=== PATIENT | female | born 1970 | race Caucasian/White ===

== ENCOUNTER 2023-07-25 03:33 | Emergency (ER) | payer OTHER, SELFPAY ==
[2023-07-25 03:40] VITALS: BP 145/90; PULSE 91; RESP 16; TEMP 36.6; O2SAT 99; BMI 29.6
--- NOTE | 2023-07-25 03:57 | ED.GENADULT ---
HPI - General Adult General Time Seen by Provider: 03:57 Date Seen: 07/25/23 Chief complaint: Chest Pain Stated complaint: Tightness Chest, Tingly arms/back legs Time Seen by Provider: 07/25/23 03:45 Source: patient, RN notes reviewed and old records reviewed Mode of arrival: ambulatory Limitations: no limitations History of Present Illness HPI narrative: 52-year-old female who comes in today with chest pain and paresthesias of the arms and legs. Patient reports that she woke up with chest pressure and nausea vomiting along with lightheadedness. Went to the bathroom and laid down, symptoms persisted but started to subside but then she sat up and symptoms return. She describes numbness and tingling in the arms and legs. No vomiting, loose stools but no abdominal pain, no fevers. Did feel like her heart was beating hard. No recent shortness of breath or exercise intolerance, feeling better now. Related Data Previous Rx's Medication Instructions Recorded ondansetron 4 mg disintegrating 4 mg PO Q6H PRN nausea and 07/25/23 tablet vomiting #20 tabs Allergies Allergy/AdvReac Type Severity Reaction Status Date / Time No Known Drug Allergies Allergy Verified 07/25/23 04:10 [facility] Social History Smoking Status: Never smoker Do you use any of these nicotine containing products: None Second hand tobacco smoke exposure: No How often do you have a drink containing alcohol: never How often do you have six or more drinks on one occasion: Never AUDIT-C Alcohol total score: 0 Non-prescribed substance use: denies use service: No Exam Narrative: Exam Narrative: General: Well-developed and well-nourished, no acute distress Head: Atraumatic and normocephalic Eyes: Pupils are equal reactive, extraocular motions intact, conjunctiva clear ENT: External nose and ears are normal, posterior pharynx without erythema or exudate Neck: No midline cervical tenderness, full spontaneous range of motion the neck, trachea midline, no adenopathy Heart: Regular rate and rhythm no murmurs or thrills Lungs: Clear to auscultation bilaterally without wheezes or crackles Abdomen: Soft, nontender, nondistended with active bowel sounds Musculoskeletal: No tenderness, deformity, or edema Neurologic: Awake, alert, and oriented x3, no gross focal neurologic deficits, cranial nerves intact as tested Psych: Mood and affect are appropriate Skin: No rashes Const: Vital Signs, click to edit/add: Vital Signs - 24 hr 07/25/23 03:40 Temperature 97.9 F Pulse Rate [Pulse Oximeter] 91 Respiratory Rate 16 Blood Pressure [Ri ght Upper Arm] 145/90 H Pulse Oximetry 99 Oxygen Delivery Me thod Room Air Course Course ED Course: Patient seen examined, prior records reviewed. Patient presents today with chest tightness, paresthesias in the arms legs along with nausea vomiting lightheadedness. Symptoms most consistent with near syncope, labs ordered along with IV fluids. There may be a component of acute stress response as well. Reevaluation(s) Time of Reevaluation #1: 05:36 Reevaluation #1: Labs independently interpreted by me with mild anemia otherwise reassuring CBC. Basic metabolic panel is normal, magnesium normal, slight elevation in the ALT but remaining hepatic panel normal. D-dimer is negative, lipase 166, troponin negative and EKG is reassuring. Chest x-ray independently interpreted by me negative for acute findings Patient reexamined, she is feeling better. No definite etiology for symptoms status found. No evidence for acute coronary syndrome, pulmonary embolism, pneumonia, acute cholecystitis, pancreatitis, or bowel obstruction. Symptoms likely related to gastritis or gastroenteritis with some esophageal spasm. Patient will be discharged with Zofran and follow-up for Vital Signs Vital signs: Initial Vital Signs Temperature 97.9 F 07/25/23 03:40 Temperature Source Temporal Artery Scan 07/25/23 03:40 Pulse Rate 91 07/25/23 03:40 Pulse Rhythm Regular 07/25/23 03:40 Pulse Strength 3+ Normal 07/25/23 03:40 Respiratory Rate 16 07/25/23 03:40 Blood Pressure 145/90 H 07/25/23 03:40 Blood Pressure Mean 108 H 07/25/23 03:40 Blood Pressure Position Semi-Fowlers 07/25/23 03:40 Pulse Oximetry 99 07/25/23 03:40 Oxygen Delivery Method Room Air 07/25/23 03:40 Vital Signs Temperature 97.9 F 07/25/23 03:40 Pulse Rate 91 07/25/23 03:40 Respiratory Rate 16 07/25/23 03:40 Blood Pressure 145/90 H 07/25/23 03:40 Pulse Oximetry 99 07/25/23 03:40 Oxygen Delivery Method Room Air 07/25/23 03:40 Temperature 97.9 F 07/25/23 03:40 Pulse Rate 91 07/25/23 03:40 Respiratory Rate 16 07/25/23 03:40 Blood Pressure 145/90 H 07/25/23 03:40 Pulse Oximetry 99 07/25/23 03:40 Oxygen Delivery Method Room Air 07/25/23 03:40 Medications Administered Medications: Discontinued Medications Generic Name Dose Route Start Last Admin Trade Name Georgette PRN Reason Stop Dose Admin Sodium Chloride 1,000 mls @ 1,000 mls/hr 07/25/23 04:15 07/25/23 05:23 0.9 % Sodium Chloride 1000 Ml IV 07/25/23 05:14 Infused .Q1H NANCY Infusion Ondansetron HCl 4 mg 07/25/23 04:08 07/25/23 04:40 Ondansetron 2 Mg/Ml Inj IVP 07/25/23 04:09 4 mg ONCE ONE Administration Medical Decision Making Lab Data Labs: Lab Results 07/25/23 07/25/23 Range/Units 04:09 04:25 WBC 7.88 (4.50-11.00) K/uL RBC 4.52 (4.00-5.20) m/uL Hgb 11.6 L (12.0-16.0) gm/dL Hct 35.9 (33.0-51.0) % MCV 79 L (80-100) fL MCH 26 (26-34) pg MCHC 32 (32-36) gm/dL RDW Coeff of Isaac 17.4 H (11.5-15.5) % Plt Count 284 (140-440) K/uL Neut % (Auto) 73.0 H (42.0-72.0) % Lymph % (Auto) 16.5 L (20-44) % [place] % (Auto) 7.7 (0.0-11.0) % Eos % (Auto) 2.4 (0.0-7.0) % Baso % (Auto) 0.3 (0.0-3.0) % Neut # (Auto) 5.80 (1.7-7.0) K/uL Lymph # (Auto) 1.30 (0.90-2.90) K/uL [place] # (Auto) 0.60 (0.00-0.90) K/UL Eos # (Auto) 0.19 (0.00-0.50) K/uL Baso # (Auto) 0.02 (0.00-0.30) K/uL Abs Immat Gran (auto) 0.01 (0.00-0.30) K/uL Imm/Tot Granulo (auto) 0.1 % D-Dimer Quant (PE/DVT) < 0.27 (0.00-0.50) ug/ml Sodium 138 (135-149) mmol/L Potassium 3.4 L (3.6-5.1) mmol/L Chloride 107 (96-114) mmol/L Carbon Dioxide 20 (20-32) mmol/L Anion Gap 11 (7-15) mEq/L BUN 14 (7-30) mg/dL Creatinine 0.6 (0.5-1.5) mg/dL Estimated Creat Clear 113.16 Estimated GFR 109 ml/min Glucose 121 H (60-115) mg/dL Calcium 8.6 (8.4-10.6) mg/dL Magnesium 1.9 (1.5-2.6) mg/dL Total Bilirubin 0.2 (0.1-1.5) mg/dL Direct Bilirubin 0.0 (0.0-0.5) mg/dL AST 26 (12-35) U/L ALT 38 H (4-35) U/L Alkaline Phosphatase 69 (40-150) U/L Total Protein 7.6 (6.0-8.3) g/dL Albumin 4.4 (3.3-5.0) g/dL Lipase 166 (23-300) U/L POC Troponin I 0.00 L (0.01-0.04) ng/ml ECG Data Attestation: I personally reviewed and interpreted this ECG as follows: Prior ECG tracings: not available for review Interpretation: Performed at 3:55 a.m. demonstrates sinus rhythm rate 98, nonspecific ST changes, no acute ischemic changes, normal intervals, normal axis, [place] 168. No prior for comparison. Discharge Plan Discharge Clinical Impression: Near syncope, Nausea Patient Disposition: Home w/ Parent or Adult Condition: Stable Instructions: Acute Nausea and Vomiting (DC), Near Syncope (ED) Activity Level: Activity as Tolerated Discharge Diet: Regular Prescriptions: New ondansetron 4 mg tablet,disintegrating 4 mg PO Q6H PRN (Reason: nausea and vomiting) Qty: 20 0RF Follow Up/Referrals: Provider,Not a Local [Primary Care Provider] - Stand Alone Forms: [employer] Info Instructions
--- NOTE | 2023-07-25 04:08 | CRLHL7_ITS ---
For Patients: As a result of the Century Cures Act, medical imaging exams and procedure reports are released immediately into your electronic medical record. You may view this report before your referring provider. If you have questions, please contact your health care provider. INDICATION: Chest pain COMPARISON: None. TECHNIQUE: 1 view chest radiograph. FINDINGS: Lung volumes are good. No focal consolidations. No pulmonary edema. No pleural effusion. No pneumothorax. No pneumomediastinum. Normal cardiomediastinal silhouette. Bones: Normal for age. IMPRESSION: Lungs clear. Normal chest radiograph. Dictated by Ricarda King MD @ 07/25/2023 7:51:47 AM (Electronically Signed)
[2023-07-25] MEDS: 0.9 % SODIUM CHLORIDE 1000 ml 1,000 ML IV (04:25)
[2023-07-25 04:35] LABS: Basophils Absolute Auto 0.02 K/uL (0.00-0.30); Basophils Percent Auto 0.3 % (0.0-3.0); Eosinophils Absolute Auto 0.19 K/uL (0.00-0.50); Eosinophils Percent Auto 2.4 % (0.0-7.0); Hematocrit 35.9 % (33.0-51.0); Hemoglobin* 11.6 gm/dL (12.0-16.0); Immature Granulocytes Abs Auto 0.01 K/uL (0.00-0.30); Immature Granulocytes Pct Auto 0.1 %; Lymphocytes Percent Auto 16.5 % (20-44); Mean Corpuscular HGB Conc 32 gm/dL (32-36); Mean Corpuscular Hemoglobin 26 pg (26-34); Mean Corpuscular Volume 79 fL (80-100); Monocytes Percent Auto 7.7 % (0.0-11.0); Platelet Count* 284 K/uL (140-440); RDW Coefficient of Variation % 17.4 % (11.5-15.5); Red Blood Count 4.52 m/uL (4.00-5.20); White Blood Count* 7.88 K/uL (4.50-11.00)
[2023-07-25 04:37] LABS: Slide Review Reflex No
[2023-07-25] MEDS: ONDANSETRON 2 MG/ML inj 4 MG IVP (04:40)
[2023-07-25 04:48] LABS: Albumin* 4.4 g/dL (3.3-5.0)
[2023-07-25 04:49] LABS: Chloride* 107 mmol/L (96-114); Potassium* 3.4 mmol/L (3.6-5.1); Sodium* 138 mmol/L (135-149)
[2023-07-25 04:51] LABS: Anion Gap 11 mEq/L (7-15); Bilirubin Total* 0.2 mg/dL (0.1-1.5); Carbon Dioxide* 20 mmol/L (20-32); Creatinine* 0.6 mg/dL (0.5-1.5); Est. Creatinine Clearance* 113.16; Estimated Glomerular Filt Rate 109 ml/min; Magnesium* 1.9 mg/dL (1.5-2.6); Total Protein* 7.6 g/dL (6.0-8.3)
[2023-07-25 04:52] LABS: Alanine Aminotransferase* 38 U/L (4-35); Alkaline Phosphatase* 69 U/L (40-150); Aspartate Amino Transferase* 26 U/L (12-35); Blood Urea Nitrogen* 14 mg/dL (7-30); Calcium* 8.6 mg/dL (8.4-10.6); Glucose* 121 mg/dL (60-115); Lipase* 166 U/L (23-300)
[2023-07-25 04:54] LABS: D Dimer Quantitative* < 0.27 ug/ml (0.00-0.50)
== END 2023-07-25 06:24 | disposition home or self-care (01) ==
PROVIDERS: Emergency Provider Family Medicine
DX: R55 Syncope and collapse (principal); R11.0 Nausea
CPT/HCPCS: 36415; 71045; 80048; 80076; 83690; 83735; 84484; 85025; 85379; 93005; 95992; 96374; 96375; 99284; 99285; J2405; J7030